=== PATIENT | female | born 1980 | race Caucasian/White ===

== ENCOUNTER 2016-12-27 14:03 | Emergency (ER) | payer OTHER ==
[~2016-12-27] VITALS: Ht 162.6 cm; Wt 79.5 kg
[2016-12-27 14:06] VITALS: BP 138/99; PULSE 123; RESP 18; O2SAT 95
[2016-12-27 14:58] LABS: BASOPHILS % (AUTO) 0.7 % (0-3); EOSINOPHILS % (AUTO) 1.6 % (0-5); Mean Corpuscular Hemoglobin 34.4 pg (27.0-35.0); NEUTROPHILS % (AUTO) 75.8 % (40-74); Platelet Count 176 bil/L (150-400)
--- NOTE | 2016-12-27 15:24 | ED.REPORT ---
HPI-Psychiatric Illness Date of Service Dec 27, 2016 ED Provider: Boston Gonzales MD Pt is an otherwise healthy 36 year old female who presents to the ED complaining worsening depression onset 5 month ago. She c/o associated insomnia and decreased appetite. She denies suicidal ideations, homicidal ideation, decreased fluid intake, and intention for self-harm. Pt admits to EtOH use to help "cope" with her depression, stating that she takes 3-4 shots a day for the past 2 weeks. Pt denies a history of alcoholism. Per pt, she has been depressed since 07/2016, 1 month after giving to her child. She denies admission for depression previously. The pt reports that she has experienced depression 1x previously in 2009 after her aunt . Pt denies abuse at home. The pt has a counseling appointment on 01/02/17 for her depression, but she wanted to be evaluated to ensure her medications "aren't conflicting with each other" and because her family is worried about her. She reports that she is not breast feeding. Nursing Notes Stated Complaint: MENTAL HEALTH EVALUATION Chief Complaint: Psychiatric Complaint Nursing Notes Reviewed: Yes Allergies: Coded Allergies: No Known Allergies (Unverified , 12/27/16) Scheduled PRN Trazodone (Trazodone) 50 Mg Tablet 50-100 MG PO HS PRN PRN For Insomnia General Time Seen by MD: 15:24 Chief Complaint Depressed Hx Obtained From: Patient Arrived By: Walk-in Onset Occurred: More than a week ago... (1 month) Symptom Duration: Since onset Severity: Current: No pain currently Severity: Maximum: No pain Recent Healthcare: No recent doctor visit, No recent hospitalization Risk-Psychiatric Illness Suicide Risk Stratification Suicide Risk Factors - Adult: : Alcohol use: Substance abuseNo: Close associate suicide, Family Hx of Suicide, Previous attempt, Prior psych admission RF Statements: Risk factors reviewed Past Medical History Past Medical History Notes: PCP - Dr. 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 Physical Exam Initial Vital Signs Vital Signs (First) Date Time Temp Pulse Resp B/P Pulse Ox O2 Delivery O2 Flow Rate FiO2 12/27/16 14:06 37.9 123 18 138/99 95 Room Air Initial VS: Reviewed Head / Eyes: Atraumatic, Normocephalic Neck: Supple, Full range of motion Respiratory: Breath sounds normal, Clear to auscultation, No respiratory distress Abdomen / GI: Soft, Non-tender Extremities: Vascular intact, Neuro intact Skin: Warm, Dry, No cyanosis General/Constitutional: Awake, Alert, Cooperative Appears to have a cleft palate repair Neurologic: Oriented X3, Speech NL, CN II - XII intact Psychiatric: Not suicidal, Not homicidal, Judgment/insight NL Cardiovascular: Regular rhythm, Heart sounds NL Heart Rate / Rhythm: Positive: Tachycardia (heart rate 124) Interpretation & Diagnostics Lab Results Interpretation Result Diagram: 12/27/16 1450 12/27/16 1450 Test 12/27/16 14:46 12/27/16 14:50 12/27/16 15:52 Hold Urine Received (Received) White Blood Count 7.6th/mm3 (3.8-10.1) Red Blood Count 4.22mil/mm3 (3.90-5.20) Hemoglobin 14.5g/dL (12.0-15.6) Hematocrit 42.2% (35.0-46.0) Mean Corpuscular Volume 100.0fL (81-100) Mean Corpuscular Hemoglobin 34.4pg (27.0-35.0) Mean Corpuscular Hemoglobin Concent 34.4% (32.0-37.0) Red Cell Distribution Width 14.0% (12.3-15.4) Platelet Count 176bil/L (150-400) Neutrophils (%) (Auto) 75.8% (40-74) Lymphocytes (%) (Auto) 16.5% (14-46) Monocytes (%) (Auto) 5.0% (4-12) Eosinophils (%) (Auto) 1.6% (0-5) Basophils (%) (Auto) 0.7% (0-3) Sodium Level 139mEq/L (134-144) Potassium Level 3.9mEq/L (3.5-5.2) Chloride Level 99mEq/L (97-108) Carbon Dioxide Level 19mmol/L (18-29) Blood Urea Nitrogen 8mg/dL (6-20) Creatinine 0.61mg/dL (0.57-1.00) Estimat Glomerular Filtration Rate 158mL/min (>59) Glucose Level 95mg/dL (60-99) Calcium Level 8.9mg/dL (8.5-10.1) Total Bilirubin 0.6mg/dL (0.0-1.2) Aspartate Amino Transf (AST/SGOT) 50U/L (0-50) Alanine Aminotransferase (ALT/SGPT) 41U/L (0-32) Alkaline Phosphatase 77U/L (25-150) Total Protein 7.2g/dL (6.4-8.4) Albumin 4.1g/dL (3.4-5.0) Thyroid Stimulating Hormone (TSH) 1.790uIU/mL (0.450-4.500) Urine Color Yellow (YELLOW) Urine Appearance Hazy (CLEAR,HAZY) Urine pH 6.0 (5.0-8.0) Urine Specific [place] 1.025 (1.003-1.035) Urine Protein 100mg/dL (NEG,TRACE) Urine Glucose (UA) Negativemg/dL (NEGATIVE) Urine Ketones Tracemg/dL (NEGATIVE) Urine Occult Blood Large (NEGATIVE) Urine Nitrite Negative (NEGATIVE) Urine Bilirubin Negative (NEGATIVE) Urine Urobilinogen Normalmg/dL (NORMAL) Urine Leukocyte Esterase Negative (NEGATIVE) Urine RBC 3-10/hpf (0-2) Urine WBC 0-5/hpf (0-5) Urine Epithelial Cells Many/hpf (NONE-MOD) Urine Crystals None seen (NONE SEEN) Urine Bacteria Many/hpf (NONE-FEW) Urine Hyaline Casts Occasional/lpf (NONE) Urine Granular Casts Occasional (NONE SEEN) Urine Waxy Casts None seen (NONE SEEN) Urine Red Blood Cell Casts None seen (NONE SEEN) Urine White Blood Cell Casts None seen (NONE SEEN) Urine Mucus None seen (None Seen) Urine Trichomonas None seen (NONE SEEN) Urine Yeast None (NONE SEEN) Urinalysis Comment None Urine Culture Reflexed Indicated ECG Interpretation ECG Interpretation: Sinus tachycardia with a rate of 117 Time: 14:03 Interpreted by: ED physician Re-Eval/Medical Decision Med Decision/Clinical Course 36-year-old female complaining of depression with a depressed affect and difficulty sleeping at night and daytime somnolence. No suicidal or homicidal ideation or psychotic features. She is compliant with psychiatric medications recently started by primary care but is also for the last couple weeks using alcohol. Clinically she does not appear intoxicated at present. I do not find her to be suicidal homicidal or gravely disabled, nor do I think that she requires a voluntary psychiatric admission. Shee continues to have a low-grade tachycardia possibly related to anxiety, no chest pain no shortness of breath normal TSH and this will not be investigated further. Source of Hx: Old records Re-Evaluation/Progress : Time of Eval: 17:10 Re-Evaluation/Progress Note: Pt rechecked. Informed pt of option to sober and speak with RN DOCUMENTATION SPECIALIST, which she declined. Informed pt of plan for discharge. Pt understands and agrees with plan for discharge. F/U instructions and RTER warnings given. All questions addressed. Counseled Regarding: Diagnosis, Lab results, Need for follow-up, When/why to return to ED Discharge & Departure Impression: Primary Impression: Depression )( Condition at Discharge: No danger to self, No danger to others, No suicidal ideation, No homicidal ideation Disposition: Home Discharge Condition All VS Reviewed: Yes Condition: Stable Patient Instructions: Depression (ED), Depression (ED) Additional Instructions: Emergency Department evaluation included anemia, examination and labs. It is safe for you to go home, we advise discontinuing alcohol ands continuing previous home medications. Stay up during the day and sleep at night. May use trazodone 50-100 mg at bedtime to help sleep. Follow up with mental health care next week as planned and follow up with primary care call for an appointment next week. He is having thoughts of harming self or others or if depressed mood becomes acutely worse return to the emergency department. Referrals: Jennifer Lyon MD Attestation Portions of this note were transcribed by Brenda Jacobs. I, Dr. Gonzales personally performed the history, physical exam and medical decision-making; I reviewed and confirmed the accuracy of the information in the transcribed note. Signed by : Tabitha Armstrong, 12/27/16. copies to: Jennifer Lyon MD, Donald L MD Dec 27, 2016 15:24 Brenda Gary Dec 27, 2016 15:39
[2016-12-27] MEDS ORDERED: 0.9% Sodium Chloride 1,000 ML IV ONE (16:00)
[2016-12-27 16:03] LABS: APPEARANCE,URINE HAZY (CLEAR,HAZY); COLOR,URINE YELLOW (YELLOW)
[2016-12-27 16:04] LABS: OCCULT BLOOD,URINE LARGE (NEGATIVE); UROBILINOGEN,URINE NORMAL (NORMAL)
[2016-12-27 16:47] VITALS: BP 129/90; PULSE 118; RESP 16; O2SAT 98
[2016-12-27] MEDS ORDERED: TRAZ-115 PO (17:21)
== END 2016-12-27 17:30 | disposition home or self-care (01) ==
LOC: SED 14:03
DX: F32.9 Major depressive disorder, single episode, unspecified (principal)
CPT/HCPCS: 36415; 80053; 81000; 81002; 81025; 82075; 84443; 85025; 87086; 93005; 96360; 99284; J7030